=== PATIENT | female | born 1965 | race Caucasian/White ===

== ENCOUNTER 2018-05-06 17:48 | Emergency (ER) | payer BC ==
[~2018-05-06] VITALS: Ht 182.9 cm; Wt 70.3 kg
[2018-05-06 18:58] LABS: *BILIRUBIN,URIN NEGATIVE (NEGATIVE); *BLOOD, URINE NEGATIVE (NEGATIVE); *CLARITY,URINE CLEAR (CLEAR); *COLOR,URINE YELLOW (YELLOW); *KETONES,URINE TRACE (NEGATIVE); *PROTEIN,URINE NEGATIVE (NEGATIVE); *UROBILINOGEN,URINE 0.2 E.U./dl (NORMAL); LEUKOCYTE ESTERASE ,URINE NEGATIVE (NEGATIVE); NITRITE, URINE NEGATIVE (NEGATIVE); PH,URINE 5.5 (5.0-8.0); UGLUCOSE NEGATIVE (NEGATIVE)
[2018-05-06 19:08] LABS: RBC,URINE 0-3 /HPF (0-3); WBC,URINE 0-3 /HPF (0-3)
[2018-05-06 19:09] LABS: *URINE HCG, QUAL NEGATIVE (NEGATIVE); BACTERIA,URINE NONE SEEN /HPF (NONE SEEN); SQUAMOUS EPITHELIAL CELL,UR FEW /HPF (NONE SEEN)
[2018-05-06 19:13] LABS: BASOPHILS % (AUTO) 0.7 % (0.0-2.0); EOSINOPHILS % (AUTO) 0.2 % (0.0-7.0); HEMATOCRIT 38.7 % (31.2-41.9); HEMOGLOBIN 13.2 g/dL (10.9-14.3); LYMPHOCYTES # (AUTO) 1.4 K/uL (20.0-40.0); LYMPHOCYTES % (AUTO) 34.6 % (20.5-51.5); MEAN CORPUSCULAR HGB CONC 34 g/dL (32.3-35.6); MEAN CORPUSCULAR VOLUME 90.9 fL (75.5-95.3); MONOCYTES # (AUTO) 0.3 K/uL (2.0-10.0); MONOCYTES % (AUTO) 6.2 % (0.0-11.0); NEUTROPHILS # (AUTO) 2.4 K/uL (1.8-8.9); NEUTROPHILS % (AUTO) 58.3 % (38.5-71.5); PLATELET COUNT (AUTO) 197 K/uL (179-408); RED BLOOD CELL COUNT(AUTO) 4.26 MIL/uL (3.63-4.92); WHITE BLOOD COUNT (AUTO) 4.2 K/uL (3.8-11.8)
[2018-05-06 19:32] LABS: BILIRUBIN,DIRECT 0.2 mg/dL (0.0-0.2); BILIRUBIN,TOTAL 0.7 mg/dL (0.2-1.0); CREATININE 0.8 mg/dL (0.6-1.3); POTASSIUM 4.1 mmol/L (3.5-5.1); TOTAL PROTEIN, SERUM 7.1 g/dL (6.4-8.2)
--- NOTE | 2018-05-06 20:24 | NUR ---
Patient discharged to home in stable conditon. Written and verbal after care instructions given. Patient verbalizes understanding of instructions. PATIETNT LEFT WITH STABLE GAIT.
[2018-05-06 20:28] VITALS: BP 117/81
== END 2018-05-06 20:29 | disposition home or self-care (01) ==
LOC: ER 17:48
DX: R10.11 Right upper quadrant pain (principal); Z88.1 Allergy status to other antibiotic agents; Z88.8 Allergy status to other drugs, medicaments and biological substances
CPT/HCPCS: 36415; 70030-TC; 74021; 83690; 84703; 85025; 93005; A4663

== ENCOUNTER 2018-09-18 17:30 | Emergency (ER) | payer BC ==
[~2018-09-18] VITALS: Ht 182.9 cm; Wt 69.9 kg
--- NOTE | 2018-09-18 19:28 | NUR ---
PATIENT MADE AWARE OF TEST RESULTS WILL BE DC HOME
--- NOTE | 2018-09-18 19:50 | NUR ---
Patient discharged to home in stable conditon. Written and verbal after care instructions given. Patient verbalizes understanding of instructions.
[2018-09-18 19:51] VITALS: BP 121/78
--- NOTE | 2018-09-18 19:53 | NUR ---
PATIENT WILL [employer] NETWORK ANALY[employer] COPY TOMORROW
== END 2018-09-18 19:54 | disposition home or self-care (01) ==
LOC: ER 17:34
DX: M79.651 Pain in right thigh (principal); Z88.1 Allergy status to other antibiotic agents; Z88.8 Allergy status to other drugs, medicaments and biological substances
CPT/HCPCS: A4663

== ENCOUNTER 2019-03-30 02:53 | Emergency (ER) | payer BC ==
[~2019-03-30] VITALS: Ht 182.9 cm; Wt 68.0 kg
--- NOTE | 2019-03-30 02:56 | NUR ---
MD AT BEDSIDE FOR HX AND PHYSICAL PT NAD, CAN SPEAK CLEAR AND COMPLETE SENTENCES, NO SOB NO RESPIRATORY DISTRESS
--- NOTE | 2019-03-30 03:29 | NUR ---
Patient discharged to home in stable conditon. Written and verbal after care instructions given. Patient verbalizes understanding of instructions. AMBULATORY W/ STABLE GAIT ALL BELONGINGS W/ PT
[2019-03-30 03:33] VITALS: BP 130/86
== END 2019-03-30 03:33 | disposition home or self-care (01) ==
LOC: ER 02:54
DX: R09.89 Other specified symptoms and signs involving the circulatory and respiratory systems (principal); Z88.8 Allergy status to other drugs, medicaments and biological substances; Z88.1 Allergy status to other antibiotic agents
CPT/HCPCS: A4663

== ENCOUNTER 2019-06-21 20:04 | Emergency (ER) | payer BC ==
[~2019-06-21] VITALS: Ht 182.9 cm; Wt 64.9 kg
[2019-06-21] MEDS ORDERED: ACETAMINOPHEN ES 500 MG TABLET PO ONE (20:45)
[2019-06-21] MEDS ORDERED: ACETAMINOPHEN ES 500 MG TABLET ONE (20:54)
--- NOTE | 2019-06-21 22:16 | NUR ---
Patient completed ultrasound of lower extremity , results are unremarkable will d/c.
[2019-06-21 23:09] VITALS: BP 132/80
== END 2019-06-21 22:30 | disposition home or self-care (01) ==
LOC: ER 20:09
DX: M54.31 Sciatica, right side (principal); Z88.1 Allergy status to other antibiotic agents; Z88.8 Allergy status to other drugs, medicaments and biological substances
CPT/HCPCS: A4663; A9150

== ENCOUNTER 2021-03-08 00:18 | Emergency (ER) | payer BC ==
[~2021-03-08] VITALS: Ht 182.9 cm; Wt 68.5 kg
--- NOTE | 2021-03-08 02:00 | NUR ---
Patient resting in room with no distress noted.
--- NOTE | 2021-03-08 02:50 | NUR ---
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
[2021-03-08] MEDS ORDERED: IBUP800T54 PO (03:09)
[2021-03-08] MEDS ORDERED: HYDR-4209 PO (03:09)
--- NOTE | 2021-03-08 03:21 | NUR ---
Patient discharged to home in stable condition. Written and verbal after care instructions given. Patient verbalizes understanding of instructions. Stressed follow up or return to ER for worsening s/s.
[2021-03-08 03:22] VITALS: BP 140/85
== END 2021-03-08 03:23 | disposition home or self-care (01) ==
LOC: ER 00:20
DX: M54.42 Lumbago with sciatica, left side (principal); Z88.1 Allergy status to other antibiotic agents; Z88.8 Allergy status to other drugs, medicaments and biological substances
CPT/HCPCS: A4663